=== PATIENT | female | born 1965 | race Caucasian/White ===

== ENCOUNTER 2016-10-21 09:55 | Day surgery (SDC) | payer OTHER ==
[2016-10-21] VITALS (499 sets, daily range): BP systolic 108–156; BP diastolic 69–105; PULSE 68–98; TEMP 97.5–98.7; O2SAT 84–100
[~2016-10-21] VITALS: Ht 170.2 cm; Wt 103.4 kg
[2016-10-21 11:06] LABS: INR 1.1 (0.8-3.0); PROTHROMBIN TIME 11.8 SECONDS (9.7-12.8)
[2016-10-21 11:11] LABS: HEMATOCRIT 37.4 % (37.0-47.0); HEMOGLOBIN 12.9 g/dl (12.5-16.0); MEAN CELL VOLUME 90 fl (80.0-100.0); MEAN CORPUSCULAR HEMOGLOBIN 31 pg (27.0-31.0); MEAN CORPUSCULAR HGB CONC 35 g/dl (33.0-37.0); MEAN PLATELET VOLUME 12.4 fl (7.4-10.4); PLATELET COUNT 263 K/mm3 (130-400); RED BLOOD COUNT 4.14 M/mm3 (4.10-5.30); REDCELL DISTRIBUTION WIDTH-CV 12.5 % (11.5-14.5); WHITE BLOOD COUNT 9.7 K/mm3 (4.8-10.8)
[2016-10-21 11:12] LABS: CALCIUM 9.7 mg/dL (8.4-10.2); CREATININE, serum 1.08 mg/dL (0.52-1.25); POTASSIUM 3.7 mmol/L (3.4-5.0)
[2016-10-21] MEDS ORDERED: BYETTA 5MC300 MCG/SY SQ ×2 (11:12→14:35)
[2016-10-21] MEDS ORDERED: PRIL40 PO (11:13)
[2016-10-21] MEDS ORDERED: COZAAR 25MG25 MG/TAB PO (11:13)
[2016-10-21] MEDS ORDERED: PRINZIDE 25 MG-1 TAB PO (11:14)
[2016-10-21] MEDS ORDERED: NORVASC 10MG10 MG PO (11:14)
[2016-10-21] MEDS ORDERED: PAXIL 20MG20 MG PO (11:15)
[2016-10-21] MEDS ORDERED: ASPIRIN E.C. 8181 MG PO (11:15)
[2016-10-21] MEDS ORDERED: PREDNISONE20 MG PO (11:16)
[2016-10-22] VITALS (591 sets, daily range): BP systolic 115–124; BP diastolic 69–80; PULSE 60–72; TEMP 97.6–98.3; O2SAT 92–100
[2016-10-22 06:07] LABS: MEAN CELL VOLUME 93 fl (80.0-100.0); MEAN CORPUSCULAR HGB CONC 34 g/dl (33.0-37.0); MEAN PLATELET VOLUME 11.7 fl (7.4-10.4); PLATELET COUNT 281 K/mm3 (130-400); RED BLOOD COUNT 3.74 M/mm3 (4.10-5.30)
[2016-10-22 06:12] LABS: HEMATOCRIT 34.6 % (37.0-47.0); HEMOGLOBIN 11.6 g/dl (12.5-16.0); MEAN CORPUSCULAR HEMOGLOBIN 31 pg (27.0-31.0)
[2016-10-22 06:19] LABS: CALCIUM 8.9 mg/dL (8.4-10.2); CREATININE, serum 1.1 mg/dL (0.52-1.25); POTASSIUM 3.1 mmol/L (3.4-5.0)
[2016-10-22] MEDS ORDERED: PLAVIX 75MG TAB75 MG PO (12:36)
== END 2016-10-22 14:00 | disposition home or self-care (01) ==
LOC: EUO 09:55 → COL.RAD 10:00 → IMCU 14:32 → EUO 10-22 14:00
PROVIDERS: Internal Medicine Interventional Cardiology
DX: I25.10 Atherosclerotic heart disease of native coronary artery without angina pectoris (principal); I10 Essential (primary) hypertension; R94.39 Abnormal result of other cardiovascular function study; R07.9 Chest pain, unspecified; R60.0 Localized edema; E11.9 Type 2 diabetes mellitus without complications; Z87.891 Personal history of nicotine dependence
CPT/HCPCS: OP; A9270-GY; C1725; C1760; C1769; C1874; C9600; J0583; J1200; J2250; J2550; Q9967